=== PATIENT | female | born 1965 | race American Indian/Alaskan Native ===

== ENCOUNTER 2017-08-17 13:55 | Inpatient (IN) | payer MEDICAID ==
[2017-08-17 13:55] VITALS: BMI 32.1
[2017-08-17] MEDS ORDERED: Sodium Chloride 0.9% 500 ML IV SCH (14:30)
--- NOTE | 2017-08-17 14:39 | ED PDOC ---
HPI: Chest Pain Time Seen by Provider: 08/17/17 14:15 Chief Complaint (Nursing): Chest Pain History Per: Patient (is transferred to the ER from the dialysis center because she developed chest pain at around hour 3 of treatment. Pain was located in both breasts but greater on the left side than the right. Patient is s/p thorocotomy for valve replacement, repair just about [address] Calvillo [place] [facility] [place] Patient reports some difficulty breathing but denies fever, radiation of pain. ) History/Exam Limitations: no limitations Current Symptoms Are (Timing): Still Present Severity: Moderate Associated Symptoms: Dyspnea. denies: Nausea Past Medical History Reviewed: Historical Data, Nursing Documentation, Vital Signs Vital Signs: Last Vital Signs Temp 97.8 F 08/17/17 14:05 Pulse 112 H 08/17/17 17:58 Resp 13 08/17/17 17:25 BP 115/51 L 08/17/17 17:25 Pulse Ox 100 08/17/17 17:58 - Medical History PMH: Anemia, Anxiety, Depression, Gall Bladder Disease, HTN, Pancreatitis, End Stage Renal Disease, Chronic Kidney Disease - Surgical History Surgical History: Cholecystectomy Other surgeries: thoracotomy for valve repair/replacement x 2 - Family History Family History: States: Unknown Family Hx - Living Arrangements Living Arrangements: With Family - Social History Current smoker - smoking cessation education provided: No - Immunization History Hx Tetanus Toxoid Vaccination: No Hx Influenza Vaccination: No Hx Pneumococcal Vaccination: Yes - Home Medications Home Medications: Ambulatory Orders Medication Instructions Recorded Calcium Acetate [Phoslo] 667 mg PO TID 08/21/16 Cinacalcet [Sensipar] 60 mg PO DAILY 08/21/16 Omeprazole 20 mg PO DAILY 08/21/16 Aspirin [Ecotrin] 81 mg PO DAILY 08/17/17 B Complex W-C No.20/Folic Acid 1 mg PO DAILY 08/17/17 [Renal Caps Softgel] Ciprofloxacin [Cipro] 250 mg PO BID 08/17/17 - Allergies Allergies/Adverse Reactions: Allergies Allergy/AdvReac Type Severity Reaction Status Date / Time No Known Allergies Allergy Verified 11/30/16 16:56 JAIME Risk Score for UA/NSTEMI - JAIME Risk Score Age > 64: NO 3 or more CAD Risk Factors: NO Known CAD (Stenosis greater than 50%): NO Aspirin use in past 7 days: NO Severe Angina: NO EKG ST changes greater than 0.5mm: NO Positive Cardiac Marker: NO JAIME Score: 0 Risk %: 5% Review of Systems ROS Statement: Except As Marked, All Systems Reviewed And Found Negative Constitutional: Negative for: Fever, Chills Cardiovascular: Positive for: Chest Pain Respiratory: Positive for: Shortness of Breath Gastrointestinal: Positive for: Nausea, Vomiting - Laboratory Results Result Diagrams: 08/17/17 15:20 08/17/17 15:20 - ECG ECG: Positive for: Interpreted By Me, Viewed By Me ECG Rhythm: Positive for: Sinus Tachycardia Rate: 112 O2 Sat by Pulse Oximetry: 100 - Radiology X-Ray: Read By Radiologist X-Ray Interpretation: Other (effusion on the left) - Progress Re-evaluation Time: 17:00 Condition: Re-examined, Improving,but remains with symptoms Medical Decision Making Medical Decision Making: Case d/w Dr. Stover for admission. Will do CT chest. Case d/w Dr. Michelle Hood. Disposition - Clinical Impression Clinical Impression: Chest pain - Patient ED Disposition Is Patient to be Admitted: Yes Doctor Will See Patient In The: Hospital - Disposition Disposition: Transfer of Care Disposition Time: 17:00 Condition: STABLE Forms: [employer] (Hungarian) - Pt Status Changed To: Hospital Disposition Of: Inpatient - Admit Certification Admit to Inpatient:: After my assessment, the patient will require hospitalization for at least two midnights. This is because of the severity of symptoms shown, intensity of services needed, and/or the medical risk in this patient being treated as an outpatient. - POA Present On Arrival: None
--- NOTE | 2017-08-17 15:06 | RAD ---
HISTORY: chest pain COMPARISON: Chest x-ray performed 06/19/09 TECHNIQUE: Chest, one view. FINDINGS: Examination limited by habitus and patient obliquity. Right sided IJ approach central venous catheter extends the SVC. LUNGS: Small to moderate left pleural effusion associated atelectasis/ infiltrate. Pulmonary venous congestion. Biapical pleural thickening. Please note that chest x-ray has limited sensitivity for the detection of pulmonary masses. CARDIOVASCULAR: Median sternotomy wires. Cardiomegaly. OSSEOUS STRUCTURES: Degenerative changes. VISUALIZED UPPER ABDOMEN: Unremarkable. OTHER FINDINGS: Surgical ken. Right axillary vascular stent. IMPRESSION: Cardiomegaly. Small to moderate left pleural effusion and or consolidation. Pulmonary venous congestion. Biapical pleural thickening. Right IJ approach central venous catheter extends the SVC.
[2017-08-17 15:21] LABS: VENOUS BLOOD GAS BASE EXCESS 1.2 mmol/L (0.0-2.0); VENOUS BLOOD GAS PCO2 55 mmHg (40-60); VENOUS BLOOD PH 7.32 (7.32-7.43)
[2017-08-17 15:43] LABS: BASO # 0.1 K/uL (0.0-0.2); BASO % 0.6 % (0.0-2.0); EOS % 0.2 % (0.0-4.0); HEMATOCRIT 39.6 % (34.0-47.0); LYMPH # 0.4 K/uL (1.0-4.3); LYMPH % 3.2 % (20.0-40.0); MEAN CELL VOLUME 91.6 fl (81.0-99.0); MEAN CORPUSCULAR HEMOGLOBIN 28.2 pg (27.0-31.0); MEAN CORPUSCULAR HGB CONC 30.8 g/dL (33.0-37.0); MEAN PLATELET VOLUME 9.1 fl (7.2-11.7); MONO # 0.7 K/uL (0.0-0.8); MONO % 6.2 % (0.0-10.0); NEUT % 89.8 % (50.0-75.0); NRBC % 0.1 % (0.0-0.0); PLATELET COUNT 156 K/uL (130-400); RED CELL DISTRIBUTION WIDTH 18.2 % (11.5-14.5); WHITE BLOOD COUNT 11.1 K/uL (4.8-10.8)
[2017-08-17 15:44] LABS: ALB/GLOB RATIO 1.2 (1.0-2.1); BILIRUBIN,TOTAL 0.7 mg/dl (0.2-1.3); CALCIUM 10.1 mg/dL (8.4-10.2); TOTAL PROTEIN 7.4 G/DL (6.3-8.2)
[2017-08-17 15:50] LABS: PARTIAL THROMBOPLASTIN TIME 48.5 Seconds (25.6-37.1)
[2017-08-17 16:14] LABS: TROPONIN I 0.249 ng/mL (0.00-0.120)
[2017-08-17 17:00] LABS: BASOPHIL 1 % (0-2); NEUTROPHIL 86 % (42-75); TOTAL CELLS COUNTED 100
[2017-08-17 17:01] LABS: LARGE PLATELETS PRESENT; STOMATOCYTES SLIGHT
[2017-08-17] MEDS ORDERED: Sodium Chloride 0.9% 50 ML IV ONE (18:28)
[2017-08-17] MEDS ORDERED: Iodixanol 320 MG/ML 100 ML BOTTLE IV ONE (18:28)
--- NOTE | 2017-08-17 21:23 | CT ---
EXAM: CT Angiography Chest With Intravenous Contrast CLINICAL HISTORY: 52 years old, female; Pain; Chest pain; Additional info: Chest pain, elevated d-dimer TECHNIQUE: Axial computed tomographic angiography images of the chest with intravenous contrast using pulmonary embolism protocol. All CT scans at this facility use one or more dose reduction techniques, viz.: automated exposure control; ma/kV adjustment per patient size (including targeted exams where dose is matched to indication; i.e. head); or iterative reconstruction technique. MIP reconstructed images were created and reviewed. Coronal and sagittal reformatted images were created and reviewed. CONTRAST: 95 mL of VISIPAQUE 320 administered intravenously. COMPARISON: No relevant prior studies available. FINDINGS: Technically limited study. Significant artifact. Postsurgical changes involving the heart/mediastinum. Notable mediastinal hematoma visualized. Postsurgical changes involving the anterior chest wall. Skin ken noted. 3 cm round soft tissue density to the right of the aorta, series 4 image 70. Question if this is secondary to hematoma. Cardiomegaly. Thickened left ventricular wall. Pericardial hemorrhagic effusion. Irregular appearance to the right atrium with adjacent areas of high density, question contrast extravasation versus calcification and abnormal appearance to atrial appendage. Imaging protocol and contrast timing are not tailored to assess for pulmonary arterial embolism, and respiratory motion artifact limit sensitivity and specificity for small segmental and subsegmental pulmonary arterial emboli. No large central pulmonary arterial thrombus. Cannot exclude small subsegmental filling defects versus artifact. No thoracic aneurysm. Evidence of some thrombus or stenosis involving the left subclavian artery. Moderate left pleural effusion with associated atelectasis. 2.5 mm nodule right upper lobe, series 6 image 24. Bilateral prominence of interstitial and vascular markings. Bilateral patchy groundglass opacity, may be related to fluid, cannot exclude infectious infiltrate. Partial visualization of renal atrophy with bilateral renal hypoattenuating lesions, incompletely evaluated. Status post cholecystectomy with biliary ductal dilatation. Degenerative changes. IMPRESSION: Postsurgical changes involving the heart/mediastinum. Notable mediastinal hematoma visualized. 3 cm round soft tissue density to the right of the aorta, series 4 image 70. Question if this is secondary to hematoma. Cardiomegaly. Thickened left ventricular wall. Pericardial hemorrhagic effusion. Irregular appearance to the right atrium with adjacent areas of high density, question contrast extravasation versus calcification and abnormal appearance to atrial appendage. Evidence of some thrombus or stenosis involving the left subclavian artery. Moderate left pleural effusion with associated atelectasis. 2.5 mm nodule right upper lobe, series 6 image 24. Bilateral prominence of interstitial and vascular markings. Bilateral patchy groundglass opacity, may be related to fluid, cannot exclude infectious infiltrate. Imaging protocol and contrast timing are not tailored to assess for pulmonary arterial embolism, and respiratory motion artifact limit sensitivity and specificity for small segmental and subsegmental pulmonary arterial emboli. No large central pulmonary arterial thrombus. Cannot exclude small subsegmental filling defects versus artifact. Partial visualization of renal atrophy with bilateral renal hypoattenuating lesions, incompletely evaluated. Status post cholecystectomy with biliary ductal dilatation. Correlate with history. Comparison with prior imaging may be beneficial if it becomes available. Thoracic surgery consultation recommended. Triple phase CT including noncontrast and delayed imaging will aid in evaluation. THIS REPORT CONTAINS FINDINGS THAT MAY BE CRITICAL TO PATIENT CARE. The findings were verbally communicated via telephone conference with Dr Zabala at 9:12 PM EDT on 08/17/2017. The findings were acknowledged and understood.
[2017-08-18] MEDS: Multivitamin Vitamin B Complex (Nephro-Vite) Tab PO SCH (08:39)
[2017-08-18] MEDS: Pantoprazole 40 mg EC Tab PO SCH (08:39)
[2017-08-18] MEDS: Cinacalcet 60 MG TAB PO SCH (08:43)
[2017-08-18] MEDS: Calcium Acetate 667 MG Capsule PO SCH ×3 (08:44→17:43)
[2017-08-18] MEDS ORDERED: [UNRECOGNIZED DRUG - REMARK] PO SCH (09:00)
--- NOTE | 2017-08-18 11:00 | CP.PCM.HP ---
Past Patient History - Infectious Disease Hx of Infectious Diseases: None - Past Medical History & Family History Past Medical History?: Yes - Past Social History Smoking Status: Former Smoker - CARDIAC Hx Cardiac Disorders: Yes Hx Hypertension: Yes Other/Comment: VALVE REPLACEMENT x2 07/15/17 - PULMONARY Hx Respiratory Disorders: No - NEUROLOGICAL Hx Neurological Disorder: No - HEENT Hx HEENT Problems: No - RENAL Hx Chronic Kidney Disease: Yes Hx Dialysis: Yes Type of Dialysis Access: LAV FISTULA, LEFT CHEST WALL PERMACATH Date of Last Dialysis Treatment: 08/17/17 Hx Renal Failure: Yes - ENDOCRINE/METABOLIC Hx Endocrine Disorders: No - HEMATOLOGICAL/ONCOLOGICAL Hx Blood Disorders: Yes Hx Anemia: Yes - INTEGUMENTARY Hx Dermatological Problems: No - MUSCULOSKELETAL/RHEUMATOLOGICAL Hx Musculoskeletal Disorders: No Hx Falls: No (DENIES) - GASTROINTESTINAL Hx Gastrointestinal Disorders: Yes Hx Gall Bladder Disease: Yes Hx Pancreatitis: Yes - GENITOURINARY/GYNECOLOGICAL Hx Genitourinary Disorders: No - PSYCHIATRIC Hx Psychophysiologic Disorder: Yes Hx Anxiety: Yes Hx Depression: Yes Hx Substance Use: No - SURGICAL HISTORY Hx Surgeries: Yes Hx Cholecystectomy: Yes - ANESTHESIA Hx Anesthesia: Yes Hx Anesthesia Reactions: No Hx Malignant Hyperthermia: No Meds Allergies/Adverse Reactions: Allergies Allergy/AdvReac Type Severity Reaction Status Date / Time No Known Allergies Allergy Verified 11/30/16 16:56 Results - Vital Signs Recent Vital Signs: Last Vital Signs Temp 98.1 F 08/18/17 08:00 Pulse 92 H 08/18/17 08:00 Resp 20 08/18/17 08:00 BP 105/71 08/18/17 08:00 Pulse Ox 98 08/18/17 08:00 - Labs Result Diagrams: 08/17/17 15:20 08/17/17 15:20 Labs: Laboratory Results - last 24 hr 08/17/17 08/17/17 08/17/17 14:30 15:20 15:20 WBC 11.1 H RBC 4.32 Hgb 12.2 Hct 39.6 MCV 91.6 MCH 28.2 MCHC 30.8 L RDW 18.2 H Plt Count 156 MPV 9.1 Neut % (Auto) 89.8 H Lymph % (Auto) 3.2 L [place] % (Auto) 6.2 Eos % (Auto) 0.2 Baso % (Auto) 0.6 Neut # 10.0 H Lymph # 0.4 L [place] # 0.7 Eos # 0.0 Baso # 0.1 Neutrophils % (Manual) 86 H Lymphocytes % (Manual) 5 L Monocytes % (Manual) 8 Basophils % (Manual) 1 Platelet Estimate Normal Large Platelets Present Poikilocytosis (manual Moderate Anisocytosis (manual) Moderate Tear Drop Cells Slight Ovalocytes Slight Stomatocytes Slight PT INR APTT D-Dimer, Quantitative pO2 22 L VBG pH 7.32 VBG pCO2 55 VBG HCO3 24.2 VBG Total CO2 30.0 H VBG O2 Sat (Calc) 35.1 L VBG Base Excess 1.2 VBG Potassium 4.0 Sodium 136.0 143 Chloride 97.0 L 98 Glucose 51 L Lactate 3.4 H FiO2 21.0 Potassium 4.0 Carbon Dioxide 23 Anion Gap 26 H BUN 27 H Creatinine 8.1 H* Est GFR ( Amer) 6 Est GFR (Non-Af Amer) 5 Random Glucose 46 L Calcium 10.1 Total Bilirubin 0.7 AST 19 ALT 16 Alkaline Phosphatase 102 Troponin I 0.2490 H* NT-Pro-B Natriuret Pep 89018 H Total Protein 7.4 Albumin 4.0 Globulin 3.4 Albumin/Globulin Ratio 1.2 Lipase 72 Venous Blood Potassium 4.0 08/17/17 08/18/17 15:20 06:00 WBC RBC Hgb Hct MCV MCH MCHC RDW Plt Count MPV Neut % (Auto) Lymph % (Auto) [place] % (Auto) Eos % (Auto) Baso % (Auto) Neut # Lymph # [place] # Eos # Baso # Neutrophils % (Manual) Lymphocytes % (Manual) Monocytes % (Manual) Basophils % (Manual) Platelet Estimate Large Platelets Poikilocytosis (manual Anisocytosis (manual) Tear Drop Cells Ovalocytes Stomatocytes PT 18.4 H INR 1.6 H APTT 48.5 H D-Dimer, Quantitative 1264 H pO2 VBG pH VBG pCO2 VBG HCO3 VBG Total CO2 VBG O2 Sat (Calc) VBG Base Excess VBG Potassium Sodium Chloride Glucose Lactate FiO2 Potassium Carbon Dioxide Anion Gap BUN Creatinine Est GFR ( Amer) Est GFR (Non-Af Amer) Random Glucose Calcium Total Bilirubin AST ALT Alkaline Phosphatase Troponin I 0.5100 H* NT-Pro-B Natriuret Pep Total Protein Albumin Globulin Albumin/Globulin Ratio Lipase Venous Blood Potassium
[2017-08-18] MEDS: ceFAZolin 1 GM in Sodium Chloride 0.9% 100 ML IVPB SCH (12:08)
--- NOTE | 2017-08-18 12:25 | CP.PCM.CON ---
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 She reportedly developed CP mid way through HD treatment. SHe describes it as in between the breasts area. SHe states its new in onset. She states it is improved today but still present. She endorses poor appetite. SHe denies fever or chills. SHe states that her dressing at the site of new AVF has been having saturated. She had a CT Chest perofrmed w/ hemorragic pericardial effusion. A full detailed ROS is negative except as in my HPI pmH: esrd, endocarditits, bacteremia, htn, secondary hyperparathyroid famhx: no esrd sochx:denies active smoke etoh IVDU Past Patient History - Infectious Disease Hx of Infectious Diseases: None - Past Medical History & Family History Past Medical History?: Yes - Past Social History Smoking Status: Former Smoker - CARDIAC Hx Cardiac Disorders: Yes Hx Hypertension: Yes Other/Comment: VALVE REPLACEMENT x2 07/15/17 - PULMONARY Hx Respiratory Disorders: No - NEUROLOGICAL Hx Neurological Disorder: No - HEENT Hx HEENT Problems: No - RENAL Hx Chronic Kidney Disease: Yes Hx Dialysis: Yes Type of Dialysis Access: LAV FISTULA, LEFT CHEST WALL PERMACATH Date of Last Dialysis Treatment: 08/17/17 Hx Renal Failure: Yes - ENDOCRINE/METABOLIC Hx Endocrine Disorders: No - HEMATOLOGICAL/ONCOLOGICAL Hx Blood Disorders: Yes Hx Anemia: Yes - INTEGUMENTARY Hx Dermatological Problems: No - MUSCULOSKELETAL/RHEUMATOLOGICAL Hx Musculoskeletal Disorders: No Hx Falls: No (DENIES) - GASTROINTESTINAL Hx Gastrointestinal Disorders: Yes Hx Gall Bladder Disease: Yes Hx Pancreatitis: Yes - GENITOURINARY/GYNECOLOGICAL Hx Genitourinary Disorders: No - PSYCHIATRIC Hx Psychophysiologic Disorder: Yes Hx Anxiety: Yes Hx Depression: Yes Hx Substance Use: No - SURGICAL HISTORY Hx Surgeries: Yes Hx Cholecystectomy: Yes - ANESTHESIA Hx Anesthesia: Yes Hx Anesthesia Reactions: No Hx Malignant Hyperthermia: No Meds Allergies/Adverse Reactions: Allergies Allergy/AdvReac Type Severity Reaction Status Date / Time No Known Allergies Allergy Verified 11/30/16 16:56 - Medications Medications: Current Medications Calcium Acetate (Phoslo) 667 mg PO TID [facility] Last Admin: 08/18/17 08:44 Dose: Not Given Cinacalcet (Sensipar) 60 mg PO DAILY [facility] Last Admin: 08/18/17 08:43 Dose: Not Given Ciprofloxacin (Cipro) 250 mg PO BID SHEYLA PRN Reason: Protocol Last Admin: 08/18/17 08:39 Dose: Not Given Sodium Chloride (Sodium Chloride 0.9%) 500 mls @ 500 mls/hr IV .Q1H [facility] Last Admin: 08/17/17 15:22 Dose: 500 mls/hr Cefazolin Sodium 1 gm/ Sodium (Chloride) 100 mls @ 100 mls/hr IVPB Q12 SHEYLA PRN Reason: Protocol Last Admin: 08/18/17 12:08 Dose: 100 mls/hr Ondansetron HCl (Zofran Inj) 4 mg IVP Q6 PRN PRN Reason: Nausea/Vomiting Last Admin: 08/18/17 08:40 Dose: 4 mg Pantoprazole Sodium (Protonix Ec Tab) 40 mg PO DAILY [facility] Last Admin: 08/18/17 08:39 Dose: 40 mg Vitamin B Complex/Vit C/Folic Acid (Nephro-Jolene) 1 tab PO DAILY [facility] Last Admin: 08/18/17 08:39 Dose: Not Given Physical Exam - Constitutional Appears: Non-toxic - Head Exam Head Exam: ATRAUMATIC - Eye Exam Eye Exam: Normal appearance - ENT Exam ENT Exam: Mucous Membranes Moist, Normal Exam - Neck Exam Neck exam: Positive for: Normal Inspection - Respiratory Exam Respiratory Exam: NORMAL BREATHING PATTERN - Cardiovascular Exam Cardiovascular Exam: +S1, +S2 Additional comments: tachy - GI/Abdominal Exam GI & Abdominal Exam: Normal Bowel Sounds Additional comments: + PD cath - Extremities Exam Additional comments: LUAF w/ dressing looks wet - Neurological Exam Neurological exam: Alert, Oriented x3 - Psychiatric Exam Psychiatric exam: Normal Affect - Skin Additional comments: dressing Left upper arm Results - Vital Signs Recent Vital Signs: Last Vital Signs Temp 98.1 F 08/18/17 08:00 Pulse 92 H 08/18/17 08:00 Resp 20 08/18/17 08:00 BP 105/71 08/18/17 08:00 Pulse Ox 98 08/18/17 08:00 - Labs Result Diagrams: 08/17/17 15:20 08/17/17 15:20 Labs: Laboratory Results - last 24 hr 08/17/17 08/17/17 08/17/17 14:30 15:20 15:20 WBC 11.1 H RBC 4.32 Hgb 12.2 Hct 39.6 MCV 91.6 MCH 28.2 MCHC 30.8 L RDW 18.2 H Plt Count 156 MPV 9.1 Neut % (Auto) 89.8 H Lymph % (Auto) 3.2 L [place] % (Auto) 6.2 Eos % (Auto) 0.2 Baso % (Auto) 0.6 Neut # 10.0 H Lymph # 0.4 L [place] # 0.7 Eos # 0.0 Baso # 0.1 Neutrophils % (Manual) 86 H Lymphocytes % (Manual) 5 L Monocytes % (Manual) 8 Basophils % (Manual) 1 Platelet Estimate Normal Large Platelets Present Poikilocytosis (manual Moderate Anisocytosis (manual) Moderate Tear Drop Cells Slight Ovalocytes Slight Stomatocytes Slight PT INR APTT D-Dimer, Quantitative pO2 22 L VBG pH 7.32 VBG pCO2 55 VBG HCO3 24.2 VBG Total CO2 30.0 H VBG O2 Sat (Calc) 35.1 L VBG Base Excess 1.2 VBG Potassium 4.0 Sodium 136.0 143 Chloride 97.0 L 98 Glucose 51 L Lactate 3.4 H FiO2 21.0 Potassium 4.0 Carbon Dioxide 23 Anion Gap 26 H BUN 27 H Creatinine 8.1 H* Est GFR ( Amer) 6 Est GFR (Non-Af Amer) 5 Random Glucose 46 L Calcium 10.1 Total Bilirubin 0.7 AST 19 ALT 16 Alkaline Phosphatase 102 Troponin I 0.2490 H* NT-Pro-B Natriuret Pep 89316 H Total Protein 7.4 Albumin 4.0 Globulin 3.4 Albumin/Globulin Ratio 1.2 Lipase 72 Venous Blood Potassium 4.0 08/17/17 08/18/17 15:20 06:00 WBC RBC Hgb Hct MCV MCH MCHC RDW Plt Count MPV Neut % (Auto) Lymph % (Auto) [place] % (Auto) Eos % (Auto) Baso % (Auto) Neut # Lymph # [place] # Eos # Baso # Neutrophils % (Manual) Lymphocytes % (Manual) Monocytes % (Manual) Basophils % (Manual) Platelet Estimate Large Platelets Poikilocytosis (manual Anisocytosis (manual) Tear Drop Cells Ovalocytes Stomatocytes PT 18.4 H INR 1.6 H APTT 48.5 H D-Dimer, Quantitative 1264 H pO2 VBG pH VBG pCO2 VBG HCO3 VBG Total CO2 VBG O2 Sat (Calc) VBG Base Excess VBG Potassium Sodium Chloride Glucose Lactate FiO2 Potassium Carbon Dioxide Anion Gap BUN Creatinine Est GFR ( Amer) Est GFR (Non-Af Amer) Random Glucose Calcium Total Bilirubin AST ALT Alkaline Phosphatase Troponin I 0.5100 H* NT-Pro-B Natriuret Pep Total Protein Albumin Globulin Albumin/Globulin Ratio Lipase Venous Blood Potassium Assessment & Plan - Assessment and Plan (Free Text) Assessment: ESRD/ Endocarditits/ Anemia of Renal Disease/ Secondary hyperparathyroid/ pericardial effusion plan: next hd tentaviely Saturday unless requires prior to that Hgb - epo on hold resume ancef for her endocarditits recc reconsult ID on sensipar for secondary hyperpara consider vascular eval LUAF and dressing change PD cath will need to be removed reportedly has f/u w/ her CT Surgeon this week discussed w/ Dr. Stover
--- NOTE | 2017-08-18 17:11 | CP.PCM.CON ---
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 PMH HTN ESRD Pancreatitis dialysis Review of Systems - Constitutional Constitutional: As Per HPI - EENT Eyes: absent: As Per HPI, Blind Spots, Blurred Vision, Change in Vision, Decreased Night Vision, Diplopia, Discharge, Dry Eye, Exophthalmos, Floaters, Irritation, Itchy Eyes, Loss of Peripheral Vision, Pain, Photophobia, Requires Corrective Lenses, Sees Flashes, Spots in Vision, Tunnel Vision, Other Visual Disturbances, Loss of Vision, Other Ears: absent: As Per HPI, Decreased Hearing, Ear Discharge, Ear Pain, Tinnitus, Abnormal Hearing, Disequilibrium, Dizziness, Other Nose/Mouth/Throat: absent: As Per HPI, Epistaxis, Nasal Congestion, Nasal Discharge, Nasal Obstruction, Nasal Trauma, Nose Pain, Post Nasal Drip, Sinus Pain, Sinus Pressure, Bleeding Gums, Change in Voice, Dental Pain, Dry Mouth, Dysphagia, Halitosis, Hoarsness, Lip Swelling, Mouth Lesions, Mouth Pain, Odynophagia, Sore Throat, Throat Swelling, Tongue Swelling, Facial Pain, Neck Pain, Neck Mass, Other - Breasts Breasts: absent: As Per HPI, Change in Shape, Mass, Pain, Nipple Discharge, Nipple Inversion, Skin Changes, Swelling, Other - Cardiovascular Cardiovascular: As Per HPI - Respiratory Respiratory: absent: As Per HPI, Cough, Dyspnea, Hemoptysis, Dyspnea on Exertion , Wheezing, Snoring, Stridor, Pain on Inspiration, Chest Congestion, Excessive Mucous Production, Change in Mucous Color, Pain with Coughing, Other - Gastrointestinal Gastrointestinal: absent: As Per HPI, Abdominal Pain, Belching, Bloating, Change in Bowel Habits, Change in Stool Character, Coffee Ground Emesis, Constipation, Cramping, Diarrhea, Dyspepsia, Dysphagia, Early Satiety, Excessive Flatus, Fecal Incontinence, Heartburn, Hematemesis, Hematochezia, Loose Stools, Melena, Nausea, Odynophagia, Temesmus, Vomiting, Other - Genitourinary Genitourinary: absent: As Per HPI, Change in Urinary Stream, Difficulty Urinating, Dysuria, Flank Pain, Hematuria, Pyuria, Nocturia, Urinary Incontinence, Urinary Frequency, Urinary Hesitance, Urinary Urgency, Voiding Freq/Small Amts, Freq UTI, Hx Renal/Bladder Calculi, Hx /Renal Surgery, Bladder Distension, Other - Reproductive: Female Reproductive:Female: absent: As Per HPI, Amenorrhea, Amenorrhea/ Control, Currently Menstual, Cycle <21 Days, Cycle >35 Days, Cycle Variable, Menses 1-7 Days, Menses >/= 8 Days, Menses Variable, Cycle > 4 Weeks Between, No Menses for 6 Months, Heavy Menses, Light Menses, Normal Menses, Spotting Between Cycles , S/P Hysterectomy, Menopausal, Post Menopausal, Premenarche, Abnormal Vaginal Bleeding, Dysmenorrhea, Dyspareunia, Genital Lesions, Genital Pruritis, Pelvic Pain, Prolapse Symptoms, Sexual Dysfunction, Vaginal Discharge, Vaginal Dryness , Vaginal Odor, Vaginal Pruritis, Other - Menstruation Menstruation: absent: As Per HPI, Amenorrhea, Amenorrhea/ Control, Currently Menstual, Cycle <21 Days, Cycle >35 Days, Cycle Variable, Menses 1-7 Days, Menses >/= 8 Days, Menses Variable, Cycle > 4 Weeks Between, No Menses for 6 Months, Heavy Menses, Light Menses, Normal Menses, Spotting Between Cycles , S/P Hysterectomy, Menopausal, Post Menopausal, Premenarche, Abnormal Vaginal Bleeding, Dysmenorrhea, Other - Integumentary Integumentary: absent: As Per HPI, Acne, Alopecia, Bleeding Lesions, Change in Hair, Change in Nails, Change in Pigmentation, Changing Lesions, Dry Skin, Erythema, Furuncle, Hirsutism, Lesions, New Lesions, Non-Healing Lesions, Photosensitivity, Pruritus, Rash, Skin Pain, Skin Ulcer, Sores, Striae, Swelling , Unusual Bruising, Wounds, Jaundice, Other - Neurological Neurological: absent: As Per HPI, Abnormal Gait, Abnormal Hearing, Abnormal Movements, Abnormal Speech, Behavioral Changes, Burning Sensations, Confusion, Convulsions, Disequilibrium, Dizziness, Numbness, Focal Weakness, Frequent Falls , Headaches, Lack of Coordination, Loss of Vision, Memory Loss, Paresthesias, Radicular Pain, Restless Legs, Sensory Deficit, Syncope, Tingling, Tremor, Vertigo, Weakness, Other Visual Disturbances, Other - Psychiatric Psychiatric: absent: As Per HPI, Abnormal Sleep Pattern, Anhedonia, Anxiety, Auditory Hallucinations, Behavioral Changes, Change in Appetite, Change in Libido, Confusion, Depression, Difficulty Concentrating, Hallucinations, Homicidal Ideation, Hopelessness, Irritability, Memory Loss, Mood Swings, Panic Attacks, Paranoia, Suicidal Ideation, Visual Hallucinations, Tactile Hallucinations, Other Past Patient History - Infectious Disease Hx of Infectious Diseases: None - Past Medical History & Family History Past Medical History?: Yes - Past Social History Smoking Status: Former Smoker - CARDIAC Hx Cardiac Disorders: Yes Hx Hypertension: Yes Other/Comment: VALVE REPLACEMENT x2 07/15/17 - PULMONARY Hx Respiratory Disorders: No - NEUROLOGICAL Hx Neurological Disorder: No - HEENT Hx HEENT Problems: No - RENAL Hx Chronic Kidney Disease: Yes Hx Dialysis: Yes Type of Dialysis Access: LAV FISTULA, LEFT CHEST WALL PERMACATH Date of Last Dialysis Treatment: 08/17/17 Hx Renal Failure: Yes - ENDOCRINE/METABOLIC Hx Endocrine Disorders: No - HEMATOLOGICAL/ONCOLOGICAL Hx Blood Disorders: Yes Hx Anemia: Yes - INTEGUMENTARY Hx Dermatological Problems: No - MUSCULOSKELETAL/RHEUMATOLOGICAL Hx Musculoskeletal Disorders: No Hx Falls: No (DENIES) - GASTROINTESTINAL Hx Gastrointestinal Disorders: Yes Hx Gall Bladder Disease: Yes Hx Pancreatitis: Yes - GENITOURINARY/GYNECOLOGICAL Hx Genitourinary Disorders: No - PSYCHIATRIC Hx Psychophysiologic Disorder: Yes Hx Anxiety: Yes Hx Depression: Yes Hx Substance Use: No - SURGICAL HISTORY Hx Surgeries: Yes Hx Cholecystectomy: Yes - ANESTHESIA Hx Anesthesia: Yes Hx Anesthesia Reactions: No Hx Malignant Hyperthermia: No Meds Allergies/Adverse Reactions: Allergies Allergy/AdvReac Type Severity Reaction Status Date / Time No Known Allergies Allergy Verified 11/30/16 16:56 - Medications Medications: Current Medications Calcium Acetate (Phoslo) 667 mg PO TID [facility] Last Admin: 08/18/17 13:00 Dose: Not Given Cinacalcet (Sensipar) 60 mg PO DAILY [facility] Last Admin: 08/18/17 08:43 Dose: Not Given Ciprofloxacin (Cipro) 250 mg PO BID [facility] PRN Reason: Protocol Last Admin: 08/18/17 16:15 Dose: 250 mg Sodium Chloride (Sodium Chloride 0.9%) 500 mls @ 500 mls/hr IV .Q1H [facility] Last Admin: 08/17/17 15:22 Dose: 500 mls/hr Cefazolin Sodium 1 gm/ Sodium (Chloride) 100 mls @ 100 mls/hr IVPB Q12 [facility] PRN Reason: Protocol Last Admin: 08/18/17 12:08 Dose: 100 mls/hr Ondansetron HCl (Zofran Inj) 4 mg IVP Q6 PRN PRN Reason: Nausea/Vomiting Last Admin: 08/18/17 08:40 Dose: 4 mg Pantoprazole Sodium (Protonix Ec Tab) 40 mg PO DAILY [facility] Last Admin: 08/18/17 08:39 Dose: 40 mg Vitamin B Complex/Vit C/Folic Acid (Nephro-Jolene) 1 tab PO DAILY [facility] Last Admin: 08/18/17 08:39 Dose: Not Given Physical Exam - Constitutional Appears: Non-toxic, Cachectic, Chronically Ill - Head Exam Head Exam: NORMOCEPHALIC - Eye Exam Eye Exam: PERRL. absent: Scleral icterus - ENT Exam ENT Exam: Mucous Membranes Dry, Normal External Ear Exam - Neck Exam Neck exam: Negative for: Lymphadenopathy - Respiratory Exam Respiratory Exam: Decreased Breath Sounds - Cardiovascular Exam Cardiovascular Exam: REGULAR RHYTHM - GI/Abdominal Exam GI & Abdominal Exam: Diminished Bowel Sounds, Soft - Rectal Exam Rectal Exam: Deferred - Exam Exam: NORMAL INSPECTION - Extremities Exam Extremities exam: Positive for: pedal edema, pedal pulses present. Negative for : calf tenderness, tenderness - Back Exam Back exam: absent: CVA tenderness (L), CVA tenderness (R) - Neurological Exam Neurological exam: Alert, CN II-XII Intact, Oriented x3, Reflexes Normal - Psychiatric Exam Psychiatric exam: Normal Mood - Skin Skin Exam: Dry Results - Vital Signs Recent Vital Signs: Last Vital Signs Temp 98.2 F 08/18/17 15:57 Pulse 88 08/18/17 15:57 Resp 14 08/18/17 15:57 BP 129/84 08/18/17 12:00 Pulse Ox 100 08/18/17 15:57 - Labs Result Diagrams: 08/17/17 15:20 08/17/17 15:20 Labs: Laboratory Results - last 24 hr 08/18/17 08/18/17 06:00 12:00 Troponin I 0.5100 H* 0.4530 H* Assessment & Plan (1) Chest pain Status: Acute (2) Abdominal pain Status: Acute (3) ESRD (end stage renal disease) on dialysis Status: Chronic - Assessment and Plan (Free Text) Assessment: Postsurgical changes involving the heart/mediastinum. Notable mediastinal hematoma visualized. 3 cm round soft tissue density to the right of the aorta, series 4 image 70. Question if this is secondary to hematoma. Cardiomegaly. Thickened left ventricular wall. Pericardial hemorrhagic effusion. Irregular appearance to the right atrium with adjacent areas of high density, question contrast extravasation versus calcification and abnormal appearance to atrial appendage. Evidence of some thrombus or stenosis involving the left subclavian artery. Moderate left pleural effusion with associated atelectasis. 2.5 mm nodule right upper lobe, series 6 image 24. Bilateral prominence of interstitial and vascular markings. Bilateral patchy groundglass opacity, may be related to fluid, cannot exclude infectious infiltrate. Imaging protocol and contrast timing are not tailored to assess for pulmonary arterial embolism, and respiratory motion artifact limit sensitivity and specificity for small segmental and subsegmental pulmonary arterial emboli. No large central pulmonary arterial thrombus. Cannot exclude small subsegmental filling defects versus artifact. Partial visualization of renal atrophy with bilateral renal hypoattenuating lesions, incompletely evaluated. Status post cholecystectomy with biliary ductal dilatation. Correlate with history. Comparison with prior imaging may be beneficial if it becomes available. Thoracic surgery consultation recommended. Triple phase CT including noncontrast and delayed imaging will aid in evaluation. THIS REPORT CONTAINS FINDINGS THAT MAY BE CRITICAL TO PATIENT CARE. The findings were verbally communicated via telephone conference with Dr Zabala at 9:12 PM EDT on 08/17/2017. The findings were acknowledged and understood. Findings discussed with patient's CT surgeon Dr. Juan Grace who states above findings are expected s/p surgery. Recommends triple phase CT tomorrow. Dr. Jolanta gómez. Plan: cont iv antibiotics await repeat cultures
[2017-08-19] MEDS: ceFAZolin 1 GM in Sodium Chloride 0.9% 100 ML IVPB SCH ×3 (01:15→12:49)
[2017-08-19] MEDS: Multivitamin Vitamin B Complex (Nephro-Vite) Tab PO SCH (08:57)
[2017-08-19] MEDS: Cinacalcet 60 MG TAB PO SCH (08:57)
[2017-08-19] MEDS: Pantoprazole 40 mg EC Tab PO SCH (08:58)
--- NOTE | 2017-08-19 09:54 | CP.PCM.PN ---
Subjective - Date & Time of Evaluation Date of Evaluation: 08/19/17 Time of Evaluation: 09:52 - Subjective Subjective: Patient and bed appeared to be comfortable no shortness of breath reported The history was noted Objective - Vital Signs/Intake and Output Vital Signs (last 24 hours): Temp Pulse Resp BP Pulse Ox 98 F 88 20 130/85 99 08/19/17 08:00 08/19/17 08:00 08/19/17 08:00 08/19/17 08:00 08/19/17 08:00 - Medications Medications: Current Medications Calcium Acetate (Phoslo) 667 mg PO TID [facility] Last Admin: 08/19/17 08:57 Dose: 667 mg Cinacalcet (Sensipar) 60 mg PO DAILY [facility] Last Admin: 08/19/17 08:57 Dose: 60 mg Ciprofloxacin (Cipro) 250 mg PO BID [facility] PRN Reason: Protocol Last Admin: 08/19/17 08:57 Dose: 250 mg Sodium Chloride (Sodium Chloride 0.9%) 500 mls @ 500 mls/hr IV .Q1H [facility] Last Admin: 08/17/17 15:22 Dose: 500 mls/hr Cefazolin Sodium 1 gm/ Sodium (Chloride) 100 mls @ 100 mls/hr IVPB Q12@0100, 1300 [facility] PRN Reason: Protocol Morphine Sulfate (Morphine) 2 mg IVP Q6 PRN PRN Reason: Pain, severe (8-10) Ondansetron HCl (Zofran Inj) 4 mg IVP Q6 PRN PRN Reason: Nausea/Vomiting Last Admin: 08/19/17 01:56 Dose: 4 mg Pantoprazole Sodium (Protonix Ec Tab) 40 mg PO DAILY [facility] Last Admin: 08/19/17 08:58 Dose: 40 mg Vitamin B Complex/Vit C/Folic Acid (Nephro-Jolene) 1 tab PO DAILY [facility] Last Admin: 08/19/17 08:57 Dose: 1 tab - Labs Labs: 08/17/17 15:20 08/17/17 15:20 PT 18.4 Seconds (9.8-13.1) H 08/17/17 15:20 INR 1.6 (0.9-1.2) H 08/17/17 15:20 APTT 48.5 Seconds (25.6-37.1) H 08/17/17 15:20 - Constitutional Appears: No Acute Distress - ENT Exam ENT Exam: Mucous Membranes Moist - Neck Exam Neck Exam: Full ROM - Respiratory Exam Respiratory Exam: NORMAL BREATHING PATTERN. absent: Chest Wall Tenderness, Rales - Cardiovascular Exam Cardiovascular Exam: absent: JVD, Rubs - GI/Abdominal Exam GI & Abdominal Exam: Soft, Normal Bowel Sounds - Extremities Exam Extremities Exam: absent: Calf Tenderness - Back Exam Back Exam: absent: CVA tenderness (L), CVA tenderness (R) - Neurological Exam Neurological Exam: Alert - Psychiatric Exam Psychiatric exam: Normal Affect, Normal Mood - Skin Skin Exam: Normal Color Assessment and Plan (1) CKD (chronic kidney disease) requiring chronic dialysis Assessment & Plan: Patient has multitude of medical problem End stage renal disease on maintenance hemodialysis TTS Status post valve replacement and repair. CT scan showed hemorrhagic pericardial effusion? Whether this is related to the cardiac surgery. Status post left arm AV shunt which appeared to be infected started on antibiotics as per ID. Patient was on peritoneal dialysis which she is supposed to have the PD catheter removed suggested to have cardiology consul Status: Acute (2) Arteriovenous graft infection Status: Acute
--- NOTE | 2017-08-19 10:31 | CARD ---
APPROVED REPORT EKG Measurement Heart [id number] <Conclusion> Sinus tachycardia Possible Left atrial enlargement RSR' or QR pattern in V1 suggests right ventricular conduction delay T wave abnormality, consider inferior ischemia T wave abnormality, consider anterolateral ischemia Abnormal ECG
[2017-08-19] MEDS ORDERED: Alum-Mag Hydrox-Simethicone Susp (30 mL) PO ONE (11:19)
--- NOTE | 2017-08-19 11:57 | CP.PCM.PN ---
Subjective - Date & Time of Evaluation Date of Evaluation: 08/19/17 Time of Evaluation: 10:00 - Subjective Subjective: afeb c/o diarrhea no fever cultures neg thus far Objective - Vital Signs/Intake and Output Vital Signs (last 24 hours): Temp Pulse Resp BP Pulse Ox 98 F 88 20 130/85 99 08/19/17 08:00 08/19/17 08:00 08/19/17 08:00 08/19/17 08:00 08/19/17 08:00 - Medications Medications: Current Medications Calcium Acetate (Phoslo) 667 mg PO TID [facility] Last Admin: 08/19/17 08:57 Dose: 667 mg Cinacalcet (Sensipar) 60 mg PO DAILY [facility] Last Admin: 08/19/17 08:57 Dose: 60 mg Ciprofloxacin (Cipro) 250 mg PO BID [facility] PRN Reason: Protocol Last Admin: 08/19/17 08:57 Dose: 250 mg Sodium Chloride (Sodium Chloride 0.9%) 500 mls @ 500 mls/hr IV .Q1H [facility] Last Admin: 08/17/17 15:22 Dose: 500 mls/hr Cefazolin Sodium 1 gm/ Sodium (Chloride) 100 mls @ 100 mls/hr IVPB Q12@0100, 1300 [facility] PRN Reason: Protocol Lactobacillus Acidophilus (Bacid Acidophilus) 1 cap PO BID [facility] Morphine Sulfate (Morphine) 2 mg IVP Q6 PRN PRN Reason: Pain, severe (8-10) Ondansetron HCl (Zofran Inj) 4 mg IVP Q6 PRN PRN Reason: Nausea/Vomiting Last Admin: 08/19/17 01:56 Dose: 4 mg Pantoprazole Sodium (Protonix Ec Tab) 40 mg PO DAILY [facility] Last Admin: 08/19/17 08:58 Dose: 40 mg Vitamin B Complex/Vit C/Folic Acid (Nephro-Jolene) 1 tab PO DAILY [facility] Last Admin: 08/19/17 08:57 Dose: 1 tab - Labs Labs: 08/17/17 15:20 08/17/17 15:20 PT 18.4 Seconds (9.8-13.1) H 08/17/17 15:20 INR 1.6 (0.9-1.2) H 08/17/17 15:20 APTT 48.5 Seconds (25.6-37.1) H 08/17/17 15:20 - Constitutional Appears: Non-toxic, Chronically Ill - Head Exam Head Exam: NORMOCEPHALIC - Eye Exam Eye Exam: PERRL - ENT Exam ENT Exam: Mucous Membranes Dry - Neck Exam Neck Exam: absent: Lymphadenopathy - Respiratory Exam Respiratory Exam: Decreased Breath Sounds - Cardiovascular Exam Cardiovascular Exam: REGULAR RHYTHM - GI/Abdominal Exam GI & Abdominal Exam: Distended, Soft - Rectal Exam Rectal Exam: Deferred - Exam Exam: NORMAL INSPECTION - Extremities Exam Extremities Exam: absent: Pedal Edema - Back Exam Back Exam: absent: CVA tenderness (L), CVA tenderness (R) - Neurological Exam Neurological Exam: Alert, Awake, Oriented x3 Assessment and Plan (1) Chest pain Status: Acute (2) Abdominal pain Status: Acute (3) ESRD (end stage renal disease) on dialysis Status: Chronic - Assessment and Plan (Free Text) Assessment: hx mssa endoicarditis s/p valve replacement admitted with exac CHF cont HD IV rx and wound care will send stool c diff
[2017-08-19 13:05] LABS: HEMATOCRIT 33.3 % (34.0-47.0); MEAN CELL VOLUME 90.7 fl (81.0-99.0); MEAN CORPUSCULAR HEMOGLOBIN 28.4 pg (27.0-31.0); MEAN CORPUSCULAR HGB CONC 31.3 g/dL (33.0-37.0); RED CELL DISTRIBUTION WIDTH 17.3 % (11.5-14.5); WHITE BLOOD COUNT 10.6 K/uL (4.8-10.8)
[2017-08-19 13:20] LABS: CALCIUM 9.6 mg/dL (8.4-10.2)
[2017-08-19 13:49] LABS: POTASSIUM 5.1 MMOL/L (3.6-5.0)
[2017-08-19] MEDS: Lactobacillus Acidophilus 500 MU Cap PO SCH (16:04)
[2017-08-19] MEDS ORDERED: Sterile Water 10 ML IV ONE (17:56)
--- NOTE | 2017-08-19 23:05 | CP.PCM.PN ---
Subjective - Date & Time of Evaluation Date of Evaluation: 08/19/17 Time of Evaluation: 14:00 Objective - Vital Signs/Intake and Output Vital Signs (last 24 hours): Temp Pulse Resp BP Pulse Ox 98.4 F 104 H 19 144/83 98 08/19/17 20:28 08/19/17 20:28 08/19/17 20:28 08/19/17 20:28 08/19/17 20:28 Intake and Output: 08/19/17 08/20/17 18:59 06:59 Intake Total 600 Balance 600 - Medications Medications: Current Medications Calcium Acetate (Phoslo) 667 mg PO TID [facility] Last Admin: 08/19/17 16:03 Dose: 667 mg Cinacalcet (Sensipar) 60 mg PO DAILY [facility] Last Admin: 08/19/17 08:57 Dose: 60 mg Ciprofloxacin (Cipro) 250 mg PO BID [facility] PRN Reason: Protocol Last Admin: 08/19/17 16:04 Dose: 250 mg Sodium Chloride (Sodium Chloride 0.9%) 500 mls @ 500 mls/hr IV .Q1H [facility] Last Admin: 08/17/17 15:22 Dose: 500 mls/hr Cefazolin Sodium 1 gm/ Sodium (Chloride) 100 mls @ 100 mls/hr IVPB Q12@0100, 1300 [facility] PRN Reason: Protocol Last Admin: 08/19/17 12:49 Dose: 100 mls/hr Lactobacillus Acidophilus (Bacid Acidophilus) 1 cap PO BID [facility] Last Admin: 08/19/17 16:04 Dose: 1 cap Metronidazole (Flagyl) 500 mg PO Q8 [facility] PRN Reason: Protocol Last Admin: 08/19/17 16:03 Dose: 500 mg Morphine Sulfate (Morphine) 2 mg IVP Q6 PRN PRN Reason: Pain, severe (8-10) Ondansetron HCl (Zofran Inj) 4 mg IVP Q6 PRN PRN Reason: Nausea/Vomiting Last Admin: 08/19/17 16:03 Dose: 4 mg Pantoprazole Sodium (Protonix Ec Tab) 40 mg PO DAILY [facility] Last Admin: 08/19/17 08:58 Dose: 40 mg Vitamin B Complex/Vit C/Folic Acid (Nephro-Jolene) 1 tab PO DAILY [facility] Last Admin: 08/19/17 08:57 Dose: 1 tab - Labs Labs: 08/19/17 12:15 08/19/17 12:15 PT 18.4 Seconds (9.8-13.1) H 08/17/17 15:20 INR 1.6 (0.9-1.2) H 08/17/17 15:20 APTT 48.5 Seconds (25.6-37.1) H 08/17/17 15:20
[2017-08-20] MEDS: ceFAZolin 1 GM in Sodium Chloride 0.9% 100 ML IVPB SCH ×2 (01:18→15:12)
[2017-08-20 06:12] LABS: MEAN CELL VOLUME 91.5 fl (81.0-99.0); MEAN CORPUSCULAR HEMOGLOBIN 28.5 pg (27.0-31.0); MEAN CORPUSCULAR HGB CONC 31.2 g/dL (33.0-37.0); WHITE BLOOD COUNT 8.2 K/uL (4.8-10.8)
[2017-08-20 06:25] LABS: CALCIUM 9.2 mg/dL (8.4-10.2); POTASSIUM 5.1 MMOL/L (3.6-5.0)
[2017-08-20] MEDS: Lactobacillus Acidophilus 500 MU Cap PO SCH ×2 (09:26→17:00)
[2017-08-20] MEDS: Pantoprazole 40 mg EC Tab PO SCH (09:27)
[2017-08-20] MEDS: Cinacalcet 60 MG TAB PO SCH (09:27)
[2017-08-20] MEDS: Multivitamin Vitamin B Complex (Nephro-Vite) Tab PO SCH (09:27)
[2017-08-20 10:28] VITALS: O2SAT 97
--- NOTE | 2017-08-20 11:14 | CP.PCM.PN ---
Subjective - Date & Time of Evaluation Date of Evaluation: 08/20/17 Time of Evaluation: 11:12 - Subjective Subjective: She was seen on hemodialysis now Patient with end stage renal disease on maintenance dialysis TTS Admitted with a chest pain which has been alleviated Sodium bath 138 Potassium bath 2 mEq Bicarbonate bath 34 Ultrafiltration about 3000 mL as tolerated Other active problem Infected left upper arm AV shunt area with the drainage Abnormal CT scan of the chest see description including hemorrhagic pericardial effusion No sign of impending tamponade I strongly suggest to call cardiology consult to make a decision what to do with this pericardial effusion Suggest to do echocardiogram to determine the size of the pericardial effusion as well Objective - Vital Signs/Intake and Output Vital Signs (last 24 hours): Temp Pulse Resp BP Pulse Ox 98.5 F 94 H 18 112/70 97 08/20/17 09:00 08/20/17 10:09 08/20/17 09:00 08/20/17 09:00 08/20/17 10:09 - Medications Medications: Current Medications Calcium Acetate (Phoslo) 667 mg PO TID [facility] Last Admin: 08/20/17 09:27 Dose: 667 mg Cinacalcet (Sensipar) 60 mg PO DAILY [facility] Last Admin: 08/20/17 09:27 Dose: 60 mg Ciprofloxacin (Cipro) 250 mg PO BID [facility] PRN Reason: Protocol Last Admin: 08/20/17 09:27 Dose: 250 mg Sodium Chloride (Sodium Chloride 0.9%) 500 mls @ 500 mls/hr IV .Q1H [facility] Last Admin: 08/17/17 15:22 Dose: 500 mls/hr Cefazolin Sodium 1 gm/ Sodium (Chloride) 100 mls @ 100 mls/hr IVPB Q12@0100, 1300 [facility] PRN Reason: Protocol Last Admin: 08/20/17 01:18 Dose: 100 mls/hr Lactobacillus Acidophilus (Bacid Acidophilus) 1 cap PO BID [facility] Last Admin: 08/20/17 09:26 Dose: 1 cap Metronidazole (Flagyl) 500 mg PO Q8 [facility] PRN Reason: Protocol Last Admin: 08/20/17 09:27 Dose: 500 mg Morphine Sulfate (Morphine) 2 mg IVP Q6 PRN PRN Reason: Pain, severe (8-10) Last Admin: 08/20/17 01:18 Dose: 2 mg Ondansetron HCl (Zofran Inj) 4 mg IVP Q6 PRN PRN Reason: Nausea/Vomiting Last Admin: 08/19/17 16:03 Dose: 4 mg Pantoprazole Sodium (Protonix Ec Tab) 40 mg PO DAILY [facility] Last Admin: 08/20/17 09:27 Dose: 40 mg Vitamin B Complex/Vit C/Folic Acid (Nephro-Jolene) 1 tab PO DAILY [facility] Last Admin: 08/20/17 09:27 Dose: 1 tab - Labs Labs: 08/20/17 05:30 08/20/17 05:30 PT 18.4 Seconds (9.8-13.1) H 08/17/17 15:20 INR 1.6 (0.9-1.2) H 08/17/17 15:20 APTT 48.5 Seconds (25.6-37.1) H 08/17/17 15:20 Assessment and Plan (1) CKD (chronic kidney disease) requiring chronic dialysis Status: Acute (2) Arteriovenous graft infection Status: Acute
--- NOTE | 2017-08-20 11:30 | CARD ---
APPROVED REPORT EXAM: Two-dimensional and M-mode echocardiogram with Doppler and color Doppler. Other Information Quality : FairRhythm : NSR Technically limited study due to body habitus.Recent Heart Surgery. INDICATION Pericardial Effusion Chest Pain Surgery/Intervention Status/Post Aortic Valve Replacement: 2D DIMENSIONS IVSd0.76 (0.7-1.1cm)LVDd5.24 (3.9-5.9cm) PWd0.72 (0.7-1.1cm)IVSs0.88 (0.8-1.2cm) LVDs4.00 (2.5-4.0cm)FS (%) 23.7 % PWs1.14 (0.8-1.2cm) M-Mode DIMENSIONS Left Atrium (MM)5.55 (2.5-4.0cm)IVSd0.77 (0.7-1.1cm) Aortic Root2.17 (2.2-3.7cm)LVDd6.18 (4.0-5.6cm) PWd0.88 (0.7-1.1cm)IVSs1.07 cm FS (%) 23 %LVDs4.74 (2.0-3.8cm) PWs0.99 cm Aortic Valve AoV Peak Qutuqlgo790.6cm/sAoV VTI47.2cmAO Peak GR.32mmHg AO Mean GR.21mmHg Mitral Valve E/A ratio0.0 TDI E/Lateral E'0.0E/Medial E'0.0 LEFT VENTRICLE The left ventricle is normal size. There is normal left ventricular wall thickness. The left ventricular function is low normal. The left ventricular ejection fraction is 50% There is normal LV segmental wall motion. Transmitral Doppler flow pattern is Grade IV-fixed restrictive diastolic dysfunction. No left ventricle thrombus noted on this study. There is no ventricular septal defect visualized. There is no left ventricular aneurysm. There is no mass noted in the left ventricle. RIGHT VENTRICLE The right ventricle is moderately to severely dilated. There is normal right ventricular wall thickness. Systolic function is moderately to severely reduced. ATRIA The left atrium size is normal. The right atrium size is normal. The interatrial septum is intact with no evidence for an atrial septal defect. AORTIC VALVE The aortic valve is moderately calcified. No aortic regurgitation is present. There is moderate valvular aortic stenosis. Calculated aortic valve area is 1 cm2 with maximum pressure gradient of 21 mmHg and mean pressure gradient of 33 mmHg. There is no aortic valvular vegetation. The aortic valve prosthesis is not well visualized MITRAL VALVE The mitral valve is normal in structure and function. There is no evidence of mitral valve prolapse. There is no mitral valve stenosis. Mitral regurgitation is moderate. TRICUSPID VALVE The tricuspid valve is normal in structure and function. There is no tricuspid valve regurgitation noted. There is no tricuspid valve prolapse or vegetation. There is no tricuspid valve stenosis. PULMONIC VALVE The pulmonary valve is normal in structure and function. There is no pulmonic valvular regurgitation. There is no pulmonic valvular stenosis. GREAT VESSELS The aortic root is normal in size. The ascending aorta is normal in size. The IVC is normal in size and collapses >50% with inspiration. PERICARDIAL EFFUSION There is a trace loculated anterior pericardial effusion. There is no pleural effusion. <Conclusion> Low Normal LV systolic function LVEF 50% Dilated and Hypokinetic RV Moderate Aortic Stenosis SUSANA 1.0 cm2 Aortic Valve not well visualized Moderate Mitral Regurgitation Restrictive Diastolic Filling
--- NOTE | 2017-08-20 11:34 | CP.PCM.PN ---
Subjective - Date & Time of Evaluation Date of Evaluation: 08/20/17 Time of Evaluation: 08:00 - Subjective Subjective: cultures so far neg c diff neg Objective - Vital Signs/Intake and Output Vital Signs (last 24 hours): Temp Pulse Resp BP Pulse Ox 98.5 F 94 H 18 112/77 97 08/20/17 09:00 08/20/17 10:09 08/20/17 09:00 08/20/17 09:00 08/20/17 10:09 - Medications Medications: Current Medications Calcium Acetate (Phoslo) 667 mg PO TID [facility] Last Admin: 08/20/17 09:27 Dose: 667 mg Cinacalcet (Sensipar) 60 mg PO DAILY [facility] Last Admin: 08/20/17 09:27 Dose: 60 mg Ciprofloxacin (Cipro) 250 mg PO BID [facility] PRN Reason: Protocol Last Admin: 08/20/17 09:27 Dose: 250 mg Sodium Chloride (Sodium Chloride 0.9%) 500 mls @ 500 mls/hr IV .Q1H [facility] Last Admin: 08/17/17 15:22 Dose: 500 mls/hr Cefazolin Sodium 1 gm/ Sodium (Chloride) 100 mls @ 100 mls/hr IVPB Q12@0100, 1300 [facility] PRN Reason: Protocol Last Admin: 08/20/17 01:18 Dose: 100 mls/hr Lactobacillus Acidophilus (Bacid Acidophilus) 1 cap PO BID [facility] Last Admin: 08/20/17 09:26 Dose: 1 cap Metronidazole (Flagyl) 500 mg PO Q8 [facility] PRN Reason: Protocol Last Admin: 08/20/17 09:27 Dose: 500 mg Morphine Sulfate (Morphine) 2 mg IVP Q6 PRN PRN Reason: Pain, severe (8-10) Last Admin: 08/20/17 01:18 Dose: 2 mg Ondansetron HCl (Zofran Inj) 4 mg IVP Q6 PRN PRN Reason: Nausea/Vomiting Last Admin: 08/19/17 16:03 Dose: 4 mg Pantoprazole Sodium (Protonix Ec Tab) 40 mg PO DAILY [facility] Last Admin: 08/20/17 09:27 Dose: 40 mg Vitamin B Complex/Vit C/Folic Acid (Nephro-Jolene) 1 tab PO DAILY [facility] Last Admin: 08/20/17 09:27 Dose: 1 tab - Labs Labs: 10/10/17 05:30 08/20/17 05:30 PT 18.4 Seconds (9.8-13.1) H 08/17/17 15:20 INR 1.6 (0.9-1.2) H 08/17/17 15:20 APTT 48.5 Seconds (25.6-37.1) H 08/17/17 15:20 Assessment and Plan (1) Chest pain Status: Acute (2) Abdominal pain Status: Acute (3) ESRD (end stage renal disease) on dialysis Status: Chronic
--- NOTE | 2017-08-20 12:47 | CP.PCM.PCO ---
Assessment & Plan - Assessment and Plan (Free Text) Assessment: Patient will require 4 weeks on Ancef 1gm IVPB q 12 for endocarditis cont. to monitor cbc, bmp
[2017-08-20 16:22] VITALS: BP 103/50; PULSE 97; RESP 20; TEMP 98
== END 2017-08-20 18:28 | DRG 543 ==
LOC: H.ER 13:55 → H.ERHOLD 17:58 → H.TEL 08-18 00:30
PROVIDERS: ADMIT Internal Medicine; ATTEND Internal Medicine
PROC: 5A1D70Z Performance of Urinary Filtration, Intermittent, Less than 6 Hours Per Day (ICD-10-PCS; principal; 2017-08-20)
DX: I31.3 Pericardial effusion (noninflammatory) (principal); T82.7XXA Infection and inflammatory reaction due to other cardiac and vascular devices, implants and grafts, initial encounter; N18.6 End stage renal disease; I12.0 Hypertensive chronic kidney disease with stage 5 chronic kidney disease or end stage renal disease; J98.11 Atelectasis; N25.81 Secondary hyperparathyroidism of renal origin; D63.1 Anemia in chronic kidney disease; I77.1 Stricture of artery; I70.8 Atherosclerosis of other arteries; F41.9 Anxiety disorder, unspecified; Y83.2 Surgical operation with anastomosis, bypass or graft as the cause of abnormal reaction of the patient, or of later complication, without mention of misadventure at the time of the procedure; Z99.2 Dependence on renal dialysis; Z95.2 Presence of prosthetic heart valve; Z86.79 Personal history of other diseases of the circulatory system; Z86.19 Personal history of other infectious and parasitic diseases; Z87.891 Personal history of nicotine dependence; Z79.82 Long term (current) use of aspirin